=== PATIENT | female | born 1980 | race Caucasian/White ===

== ENCOUNTER → 2018-09-17 | Outpatient (CLI) | payer OTHER, BC | LOC: LAB 12:33 → LAB SHORT 12:33 | DX: N39.0 Urinary tract infection, site not specified (principal) | CPT/HCPCS: 87077; 87086; 87186 ==

== ENCOUNTER → 2021-03-06 | Outpatient (CLI) | payer OTHER | END | disposition home or self-care (01) | LOC: LAB 09:20 → LAB SHORT 09:20 | DX: R30.0 Dysuria (principal) | CPT/HCPCS: 87086 ==

== ENCOUNTER → 2024-03-27 | Outpatient (CLI) | payer OTHER | LOC: LAB SHORT 16:42 → LAB 16:42 | DX: R30.0 Dysuria (principal); R35.0 Frequency of micturition | CPT/HCPCS: 87086 ==

== ENCOUNTER → 2024-04-16 | Outpatient (CLI) | payer OTHER | LOC: LAB 07:39 → LAB SHORT 07:39 | DX: R30.0 Dysuria (principal) | CPT/HCPCS: 87077; 87086; 87186 ==